=== PATIENT | female | born 1955 | race Caucasian/White ===

== ENCOUNTER 2020-07-22 07:32 | Inpatient (IN) ==
[2020-07-22] MEDS ORDERED: D5 1/2 NS 1000 ML 1,000 ML IV SCH (07:50)
[2020-07-22] MEDS ORDERED: ANCEF VIAL 1 GRAM IVP ONE (07:50)
[2020-07-22] MEDS ORDERED: ANCEF 1 GRAM IV PREMIX* 1 G/50 ML BAG IV ONE (07:52)
[2020-07-22 08:36] VITALS: BMI 26.6
[2020-07-22] MEDS ORDERED: FENTANYL INJ 250 mcg ONE (09:10)
[2020-07-22] MEDS ORDERED: DILAUDID INJ ONE (09:11)
[2020-07-22] MEDS ORDERED: ProvayBLUE 0.5% ONE (09:12)
[2020-07-22] MEDS ORDERED: BETADINE SOLN ONE (09:12)
[2020-07-22] MEDS ORDERED: NORCURON INJ 10 MG VIAL ONE (09:32)
[2020-07-22] MEDS ORDERED: NEOSTIGMINE INJ ONE (09:32)
[2020-07-22] MEDS ORDERED: QUELICIN (OR ANECTINE) ONE (09:32)
[2020-07-22] MEDS ORDERED: EPHEDRINE SULFATE INJ ONE (09:32)
[2020-07-22] MEDS ORDERED: VERSED ONE (09:32)
[2020-07-22] MEDS ORDERED: ROBINUL ONE (09:32)
[2020-07-22] MEDS ORDERED: DIPRIVAN VIAL ONE (09:32)
[2020-07-22] MEDS ORDERED: SUPRANE ONE (09:32)
[2020-07-22] MEDS ORDERED: ZOFRAN INJ 4 MG VIAL ONE (09:32)
[2020-07-22] MEDS ORDERED: NS IRRIGATION* 1,000 ML ONE (10:05)
[2020-07-22] MEDS ORDERED: NS IRRIGATION* 500 ML IR ONE (10:05)
[2020-07-22] MEDS ORDERED: REGLAN INJ 10 MG VIAL IVP PRN (11:36)
[2020-07-22] MEDS ORDERED: ZOFRAN INJ 4 MG VIAL IVP PRN (11:36)
[2020-07-22] MEDS ORDERED: DILAUDID INJ IVP PRN (11:36)
[2020-07-22] MEDS ORDERED: PHENERGAN INJ 25 MG IM PRN (11:36)
[2020-07-22] MEDS ORDERED: BENADRYL INJ 50 MG VIAL IVP PRN ×2 (11:36→11:59)
[2020-07-22] MEDS ORDERED: MORPHINE SULFATE PCA 30 MG IVP PRN (11:59)
[2020-07-22] MEDS: D5 1/2 NS 1000 ML 1,000 ML IV SCH ×2 (13:00→21:21)
[2020-07-22] MEDS: TORADOL 30 MG VIAL IVP PRN (13:24)
[2020-07-22] MEDS: ZOFRAN INJ 4 MG VIAL IVP PRN (18:26)
[2020-07-23] MEDS: TORADOL 30 MG VIAL IVP PRN (03:18)
[2020-07-23] MEDS: ZOFRAN INJ 4 MG VIAL IVP PRN ×3 (03:30→21:22)
[2020-07-23] MEDS: D5 1/2 NS 1000 ML 1,000 ML IV SCH ×2 (04:57→16:56)
[2020-07-23 06:04] LABS: BASOPHILS % (AUTO) 0.2 % (0.2-1.0); EOSINOPHILS % (AUTO) 0.3 % (0.9-2.9); HEMATOCRIT 37.2 % (36.0-47.0); HEMOGLOBIN 12.5 g/dL (12.0-16.0); LYMPHOCYTES % (AUTO) 12.8 % (21.0-51.0); MEAN CORPUSCULAR HEMOGLOBIN 32.4 pg (27.0-34.0); MEAN CORPUSCULAR HGB CONC 33.4 g/dL (33.0-35.0); MEAN CORPUSCULAR VOLUME 96.7 fL (80.0-100.0); MEAN PLATELET VOLUME 7.9 fL (7.4-11.0); MONOCYTES # (AUTO) 0.9 x10^3/uL (0.3-0.8); MONOCYTES % (AUTO) 11.2 % (0.0-13.0); NEUTROPHILS # (AUTO) 6.1 x10^3/uL (2.2-4.8); NEUTROPHILS % (AUTO) 75.5 % (42.0-75.0); PLATELET COUNT 215 X10^3/uL (150.0-450.0); RED BLOOD COUNT 3.85 X10^6/uL (3.5-5.4); RED CELL DISTRIBUTION WIDTH 12.9 % (11.6-16.5)
[2020-07-23 06:11] LABS: BLOOD UREA NITROGEN 8 mg/dL (7-18); CALCIUM 8.1 mg/dL (8.5-10.1); CARBON DIOXIDE 27.5 mmol/L (21-32); CHLORIDE 105 mmol/L (98-107); COR NA(FOR HYPERGLY) 140 mmol/L (136-145); CREATININE 0.75 mg/dL (0.55-1.02); SODIUM 139 mmol/L (136-145); eGFR NON BLACK RACES > 60 (>60)
[2020-07-23] MEDS ORDERED: KLONOPIN TAB 0.5 MG PO PRN (07:27)
[2020-07-23] MEDS ORDERED: NITROSTAT SL PRN (07:27)
[2020-07-23] MEDS: MOTRIN TAB 800 MG PO PRN (08:18)
[2020-07-23] MEDS: COLACE CAP 100 MG PO SCH ×2 (09:00→21:22)
[2020-07-23] MEDS: NIASPAN ER TAB 500 MG PO SCH (09:01)
[2020-07-23] MEDS: PROTONIX TAB 40 MG PO SCH (09:01)
[2020-07-23] MEDS: FOLIC ACID TAB 1 MG PO SCH (09:01)
[2020-07-23] MEDS: COREG TAB 6.25 MG PO SCH ×2 (09:01→21:22)
[2020-07-23] MEDS: PERCOCET TAB 5/325 MG PO PRN ×2 (11:53→21:21)
[2020-07-23] MEDS: BACTROBAN TOPICAL OINT TOP SCH ×2 (15:00→21:23)
[2020-07-23] MEDS ORDERED: SYNTHROID 50 mcg TAB PO SCH (16:30)
[2020-07-23] MEDS ORDERED: SINGULAIR TAB 10 MG PO SCH (21:00)
[2020-07-24 04:58] VITALS: BP 105/62
[2020-07-24] MEDS: BACTROBAN TOPICAL OINT TOP SCH (05:33)
[2020-07-24] MEDS: MOTRIN TAB 800 MG PO PRN (06:12)
[2020-07-24] MEDS: COREG TAB 6.25 MG PO SCH (08:06)
[2020-07-24] MEDS: FOLIC ACID TAB 1 MG PO SCH (08:06)
[2020-07-24] MEDS: COLACE CAP 100 MG PO SCH (08:06)
[2020-07-24] MEDS: PROTONIX TAB 40 MG PO SCH (08:07)
[2020-07-24] MEDS: NIASPAN ER TAB 500 MG PO SCH (08:07)
== END 2020-07-24 09:40 | disposition home or self-care (01) | DRG 743 ==
LOC: MED/SURG 07:32
PROVIDERS: ADMIT Specialist; ATTEND Specialist
DX: R10.2 Pelvic and perineal pain; N83.292 Other ovarian cyst, left side